=== PATIENT | female | born 1955 | race Caucasian/White ===

== ENCOUNTER → 2016-12-24 | Outpatient (CLI) | payer OTHER ==
[~2016-12-24] MED LIST: AMLO10TA2 PO; ASPI325T80 PO; DIAZ5TAB PO; HYDR-3307 PO; METO25TA4 PO; MOME17SP INH; NAPR220C2 PO; RANI150T8 PO; RESVERATROL; ROSU5TAB PO; SUPER B COMP; fish oil; vit d3
[2016-12-24 11:06] LABS: BLOOD UREA NITROGEN 21 mg/dL (7-18)
[2016-12-24 11:17] LABS: ASPARTATE AMINO TRANSFERASE 28 U/L (15-37)
== END | disposition home or self-care (01) ==
LOC: LAB 10:28
PROVIDERS: ATTEND Family Medicine
DX: Z13.1 Encounter for screening for diabetes mellitus (principal); R53.83 Other fatigue; E78.2 Mixed hyperlipidemia
CPT/HCPCS: 36415; 80053; 80061; 84443; 85025

== ENCOUNTER → 2017-07-21 | Outpatient (CLI) | payer BC | END | disposition home or self-care (01) | LOC: CFH 15:20 | PROVIDERS: ATTEND Family Medicine | DX: Z12.31 Encounter for screening mammogram for malignant neoplasm of breast (principal); D17.22 Benign lipomatous neoplasm of skin and subcutaneous tissue of left arm; Z80.3 Family history of malignant neoplasm of breast | CPT/HCPCS: 76881; G0202 ==

== ENCOUNTER → 2018-07-26 | Outpatient (CLI) | payer BC, MEDICARE ==
[~2018-07-26] MED LIST changes: -AMLO10TA2 PO; +AMLO10TA6 PO; +RANI150T23 PO; -RANI150T8 PO
== END | disposition home or self-care (01) ==
LOC: CFH 15:02
PROVIDERS: ATTEND Family Medicine
DX: Z12.31 Encounter for screening mammogram for malignant neoplasm of breast (principal)
CPT/HCPCS: 77067

== ENCOUNTER → 2019-08-18 | Outpatient (CLI) | payer MEDICARE ==
[~2019-08-18] MED LIST changes: -AMLO10TA6 PO; +AMLO10TA8 PO; -HYDR-3307 PO; +HYDR-36 PO; +RANI-467 PO; -RANI150T23 PO
== END | disposition home or self-care (01) ==
LOC: CFH 13:00
PROVIDERS: ATTEND Family Medicine
DX: Z12.31 Encounter for screening mammogram for malignant neoplasm of breast (principal)
CPT/HCPCS: 77063; 77067